=== PATIENT | female | born 1980 | race Caucasian/White ===

== ENCOUNTER 2017-08-10 07:03 | Emergency (ER) | payer BC ==
[2017-08-10 07:20] VITALS: BP 135/93
--- NOTE | 2017-08-10 07:38 | UC ---
Rupinder Ochoa Gabriel, scribed for Everette Nascimento MD on 08/10/17 at 0715 . Abdominal Pain Female HPI - HPI Summary HPI Summary: This patient is a 37 year old F presenting to [facility] with a chief complaint of intermittent ABD pain that began on 08-04-17. She did vomit that night but has not since. The patient rates the pain 7/10 in severity and states it is located in her RUQ. Symptoms alleviated by prilosec and ibuprofen. Patient reports back pain. Patient denies n/v/d, blood in stool, vaginal discharge, and fever. No hx of GERD. Pt does not take ibuprofen chronically. - History of Current Complaint Stated Complaint: ABDOMINAL PAIN Time Seen by Provider: 08/10/17 07:03 Hx Obtained From: Patient Hx Last Menstrual Period: 2 weeks ago Onset/Duration: Lasting Days, Still Present Timing: Intermittent Episodes Lasting: Severity Initially: Moderate Severity Currently: Moderate Pain Intensity: 7 Pain Scale Used: 0-10 Numeric Location: Discrete At: RUQ Radiates: Yes Radiates to: Back Character: Cramping Associated Signs and Symptoms: Positive: Negative - n/v, Other: - back pain Allergies/Adverse Reactions: Allergies Allergy/AdvReac Type Severity Reaction Status Date / Time Penicillins Allergy Hives Verified 08/10/17 07:10 Home Medications: Home Medications Ibuprofen TAB* [Advil TAB*] 200 mg PO Q6H PRN 08/10/17 [History Confirmed ] Omeprazole CAP* [Prilosec CAP* 20 MG] 20 mg PO DAILY PRN 08/10/17 [History Confirmed 08/10/17] PMH/Surg Hx/FS Hx/Imm Hx Previously Healthy: Yes - Surgical History Surgical History: Yes Surgery Procedure, Year, and Place: Wrist rebroken/reset age 1. tubes in ears when little - Family History Known Family History: Negative: Renal Disease, Respiratory Disease, Seizure Disorder - Social History Alcohol Use: None Substance Use Type: None Amount Used/How Often: socially Review of Systems Constitutional: Negative - fever Gastrointestinal: Abdominal Pain Musculoskeletal: Other: - back pain All Other Systems Reviewed And Are Negative: Yes Physical Exam - Summary Physical Exam Summary: General: well-appearing, mild pain distress Skin: warm, color reflects adequate perfusion, dry Head: normal Eyes: EOMI, KOREY ENT: normal Neck: supple, nontender Respiratory: CTA, breath sounds present Cardiovascular: RRR Abdomen: soft, TTP in RUQ Bowel: present Musculoskeletal: normal, strength/ROM intact Neurological: sensory/motor intact, A&O x3 Psychological: affect/mood appropriate Triage Information Reviewed: Yes Vital Signs: Initial Vital Signs Temp 99.4 F 08/10/17 07:12 Pulse 65 08/10/17 07:12 Resp 20 08/10/17 07:12 BP 135/93 08/10/17 07:12 Pulse Ox 98 08/10/17 07:12 Vital Signs Reviewed: Yes Abd Pain Female Course/Dx - Course Course Of Treatment: DISCUSSED NEED FOR IMAGING AND LAB WORK FOR TIMELY EVALUATION OF ABDOMINAL PAIN AND RECOMMENDED FURTHER EVALUATION AND TREATMENT IN THE EMERGENCY DEPARTMENT NOW. BP noted and advised to follow up with PCP. - Differential Dx/Diagnosis Provider Diagnoses: RIGHT UPPER QUADRANT ABDOMINAL PAIN. Elevated blood pressure without a previous diagnoses of hypertension Discharge - Sign-Out/Discharge Documenting (check all that apply): Discharge/Admit/Transfer - Discharge Plan Condition: Stable Disposition: HOME Patient Education Materials: Acute Abdominal Pain (ED) Referrals: Ruben Hanley MD [Primary Care Provider] - Additional Instructions: GO DIRECTLY TO THE EMERGENCY DEPARTMENT FOR FURTHER EVALUATION OF YOUR ABDOMINAL PAIN. - Billing Disposition and Condition Condition: STABLE Disposition: HOME The documentation as recorded by the Rupinder bravo Gabriel accurately reflects the service I personally performed and the decisions made by me, Everette Nascimento MD.
== END 2017-08-10 07:42 | disposition home or self-care (01) ==
LOC: UCEAST 07:03
DX: R10.11 Right upper quadrant pain (principal); R03.0 Elevated blood-pressure reading, without diagnosis of hypertension; Z88.0 Allergy status to penicillin
CPT/HCPCS: 99212; G0463

== ENCOUNTER 2017-08-10 07:58 | Inpatient (IN) | payer BC ==
[2017-08-10 09:18] LABS: ABS Basophils 0 10^3/ul (0-0.2); ABS Eosinophils 0.2 10^3/ul (0-0.6); ABS Lymphocytes 1.2 10^3/ul (1.0-4.8); ABS Monocytes 0.6 10^3/ul (0-0.8); ABS Neutrophils 5.1 10^3/ul (1.5-7.7); ABS Nucleated RBC 0 10^3/ul; Eosinophil % 2.5 % (0-6); Hematocrit 37 % (35-47); Hemoglobin 12.4 g/dl (12.0-16.0); Lymphocyte % 17.1 % (25-47); Mean Corpuscular HGB Conc 34 g/dl (31-36); Mean Corpuscular Hemoglobin 31 pg (27-31); Mean Corpuscular Volume 91 fL (80-97); Mean Platelet Volume 7.2 um3 (7.4-10.4); Nucleated Red Blood Cells % 0; Platelet Count 319 10^3/ul (150-450); Red Blood Count 4.03 10^6/ul (4.0-5.4); Red Cell Distribution Width 13 % (10.5-15); White Blood Count 7.2 10^3/ul (3.5-10.8)
--- NOTE | 2017-08-10 09:31 | ED ---
Abdominal Pain/Female - HPI Summary HPI Summary: From urgent care. Patient states for the past week she has been experiencing right upper quadrant pain with associated nausea and vomiting. Denies any right lower quadrant pain. Denies any fevers, sweats, chills. Symptoms are aggravated with eating and better with rest. She states she has been taking ibuprofen without relief. Denies any hematemesis. Denies any constipation or diarrhea. She's never had these symptoms before. Denies any urinary symptoms or vaginal discharge. LMP several weeks ago, however denies chance of . She states her worse symptoms were yesterday when she had a bagel with butter and a bag of trail mix. - History of Current Complaint Chief Complaint: EDAbdPain Stated Complaint: ABD PAIN Time Seen by Provider: 08/10/17 08:17 Hx Obtained From: Patient Hx Last Menstrual Period: 2 weeks ago ?: No Onset/Duration: Sudden Onset Timing: Constant Severity Initially: Moderate Severity Currently: Moderate Pain Intensity: 6 Pain Scale Used: 0-10 Numeric Location: Discrete At: RUQ Radiates: No Character: Dull, Cramping, Colicy Aggravating Factor(s): Food Alleviating Factor(s): Nothing Associated Signs and Symptoms: Positive: Nausea, Vomiting. Negative: Fever, Back Pain, Constipation, Blood in Stool, Urinary Symptoms, Decreased Appetite, Vaginal Bleeding, Vaginal Discharge, Diarrhea - Risk Factors Ectopic Risk Factor: Maternal Age ^ 30 Ovarian Torsion Risk Factor: Negative Allergies/Adverse Reactions: Allergies Allergy/AdvReac Type Severity Reaction Status Date / Time Penicillins Allergy Hives Verified 08/10/17 08:02 PMH/Surg Hx/FS Hx/Imm Hx Previously Healthy: Yes Endocrine/Hematology History: Denies: Hx Diabetes, Hx Thyroid Disease Cardiovascular History: Denies: Hx Hypertension, Hx Pacemaker/ICD Respiratory History: Denies: Hx Asthma, Hx Chronic Obstructive Pulmonary Disease (COPD) GI History: Denies: Hx Ulcer History: Denies: Hx Renal Disease Sensory History: Denies: Hx Hearing Aid Psychiatric History: Denies: Hx Panic Disorder - Cancer History Cancer Type, 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 tubes in ears when little - Immunization History Hx Pertussis Vaccination: No Immunizations Up to Date: Unable to Obtain/Confirm Infectious Disease History: No Infectious Disease History: Denies: Hx Hepatitis, Hx Human Immunodeficiency Virus (HIV), Traveled Outside the [place] in Last 30 Days - Family History Known Family History: Negative: Renal Disease, Respiratory Disease, Seizure Disorder - Social History Occupation: Employed Full-time Lives: With Family Alcohol Use: None Hx Substance Use: No Substance Use Type: Reports: None Hx Tobacco Use: Yes Smoking Status (MU): Light Every Day Tobacco Smoker Amount Used/How Often: socially Review of Systems Constitutional: Negative Negative: Fever, Chills, Fatigue ENT: Negative Cardiovascular: Negative Negative: Palpitations, Chest Pain Negative: Shortness Of Breath, Cough Positive: Abdominal Pain - RUQ, Vomiting, Nausea. Negative: Diarrhea Genitourinary: Negative Positive: no symptoms reported, see HPI Skin: Negative Neurological: Negative All Other Systems Reviewed And Are Negative: Yes Physical Exam Triage Information Reviewed: Yes Vital Signs On Initial Exam: Initial Vitals Temp Pulse Resp BP Pulse Ox 97.4 F 69 16 140/103 100 08/10/17 08:02 08/10/17 08:02 08/10/17 08:02 08/10/17 08:02 08/10/17 08:02 Vital Signs Reviewed: Yes Appearance: Positive: Well-Appearing, Well-Nourished Skin: Positive: Warm, Skin Color Reflects Adequate Perfusion Head/Face: Positive: Normal Head/Face Inspection Eyes: Positive: EOMI, KORYE, Conjunctiva Clear Neck: Positive: Supple, Nontender, No Lymphadenopathy Respiratory/Lung Sounds: Positive: Clear to Auscultation, Breath Sounds Present Cardiovascular: Positive: Normal, RRR, Pulses are Symmetrical in both Upper and Lower Extremities Abdomen Description: Positive: Soft - + bob's. Negative: CVA Tenderness (R) , CVA Tenderness (L), Hepatomegaly, McBurney's Point Tenderness, Peritoneal Signs, Pulsatile Mass, Splenomegaly Musculoskeletal: Positive: Normal, Strength/ROM Intact Neurological: Positive: Sensory/Motor Intact, Alert, Oriented to Person Place, Time, Speech Normal Psychiatric: Positive: Normal, Affect/Mood Appropriate AVPU Assessment: Alert Diagnostics - Vital Signs Vital Signs Temp Pulse Resp BP Pulse Ox 08/10/17 08:02 97.4 F 69 16 140/103 100 - Laboratory Lab Results: Lab Results 08/10/17 Range/Units 09:09 WBC 7.2 (3.5-10.8) 10^3/ul RBC 4.03 (4.0-5.4) 10^6/ul Hgb 12.4 (12.0-16.0) g/dl Hct 37 (35-47) % MCV 91 (80-97) fL MCH 31 (27-31) pg MCHC 34 (31-36) g/dl RDW 13 (10.5-15) % Plt Count 319 (150-450) 10^3/ul MPV 7.2 L (7.4-10.4) um3 Neut % (Auto) 71.5 (38-83) % Lymph % (Auto) 17.1 L (25-47) % Cameron % (Auto) 8.4 H (0-7) % Eos % (Auto) 2.5 (0-6) % Baso % (Auto) 0.5 (0-2) % Absolute Neuts (auto) 5.1 (1.5-7.7) 10^3/ul Absolute Lymphs (auto) 1.2 (1.0-4.8) 10^3/ul Absolute Monos (auto) 0.6 (0-0.8) 10^3/ul Absolute Eos (auto) 0.2 (0-0.6) 10^3/ul Absolute Basos (auto) 0 (0-0.2) 10^3/ul Absolute Nucleated RBC 0 10^3/ul Nucleated RBC % 0 Result Diagrams: 08/10/17 09:09 08/10/17 09:09 Lab Statement: Any lab studies that have been ordered have been reviewed, and results considered in the medical decision making process. Re-Evaluation - Re-Evaluation First Eval Change: Improved - improved s/p morphine and reglan Abdominal Pain Fem Course/Dx - Course Course Of Treatment: During the course of treatment, the patient is given 4 mg morphine, 10 mg Reglan with good relief of symptoms. On physical examination, positive Bob sign is noted. No tenderness over McBurney's point, negative Rovsing. No pain in other quadrants of the abdomen. UA obtained which is negative for leuks positive for bilirubin. US gallbladder ordered, however d/t holiday, no US is available. CT obtained which shows: IMPRESSION: CHOLELITHIASIS WITH GALLBLADDER WALL THICKENING AND PERICHOLECYSTIC INFLAMMATORY CHANGE,. MOST CONSISTENT WITH CHOLECYSTITIS IN THE CORRECT CLINICAL SETTING. Labs ordered. WBC WNL at 7.2. LFT's and bilirubin elevated. Hepatitis panel obtained which is non-reactive. Discussed case with Dr. Lauren at 12:35p who agrees to consult on the patient and recommends abx and admission. Dr. Joseph agrees to accept patient for admission. - Diagnoses Differential Diagnosis: Positive: Renal Colic, Other - Cholecystitis, choledocholithiasis Provider Diagnoses: Cholecystitis Is Visit Related: No - Provider Notifications Discussed Care Of Patient With: Sparkle Joseph - admission to hospitalist service with surgery consult Instructed by Provider To: Admit As Inpatient Discharge - Sign-Out/Discharge Documenting (check all that apply): Discharge/Admit/Transfer - Discharge Plan Condition: Good Disposition: ADMITTED TO [facility] Referrals: Ruben Hanley MD [Primary Care Provider] - - Billing Disposition and Condition Condition: GOOD Disposition: [facility]
[2017-08-10] MEDS ORDERED: Morphine VIAL* 4 MG/ML VIAL (1 ml vial) IV ONE (09:33)
[2017-08-10] MEDS ORDERED: Metoclopramide IV* 5 MG/ML 2 ML VIAL IV ONE (09:34)
[2017-08-10 09:35] LABS: EGFR Non-African American 88.8 (>60)
[2017-08-10 10:01] LABS: Urine Appearance Cloudy; Urine Blood Negative (Negative); Urine Color Amber; Urine Ketones Negative (Negative); Urine Protein 1+(30 mg/dL) (Negative); Urine Specific Gravity 1.023 (1.010-1.030); Urine Urobilinogen Positive (Negative)
--- NOTE | 2017-08-10 12:16 | RAD ---
CLINICAL HISTORY: Evaluate gallbladder for cholecystitis COMPARISON: None TECHNIQUE: Multiple contiguous axial CT scans were obtained of the abdomen and pelvis, without intravenous contrast enhancement. Coronal and sagittal multiplanar reformations are submitted for review. Oral contrast was not administered. FINDINGS: The study is limited by the lack of intravenous contrast. This limits evaluation of the solid organs and vasculature. LUNG BASES: The lung bases are clear. LIVER: The liver is normal in shape, size, contour, and attenuation. BILE DUCTS: There is no intrahepatic or extrahepatic biliary dilatation. GALLBLADDER: Multiple gallstones are noted. There is gallbladder wall thickening with stranding of the pericholecystic fat. PANCREAS: The pancreas is normal, without mass or ductal dilatation. SPLEEN: Normal in size and appearance. UPPER GI TRACT: Evaluation of the gastrointestinal tract is limited by incomplete gastric distention. The upper GI tract is unremarkable. SMALL BOWEL AND MESENTERY: The small bowel is normal in contour, course, and caliber. There is no obstruction or dilatation. COLON: The colon is normal in contour, course, caliber. There is no pericolonic inflammatory change. ADRENALS: Normal bilaterally. KIDNEYS: The kidneys are normal in shape, size, contour, and axis. There is no hydronephrosis or nephrolithiasis. BLADDER: The bladder is smooth in contour. PELVIC ORGANS: Normal AORTA: The aorta is normal. IVC: Unremarkable LYMPH NODES: There is no lymphadenopathy by size criteria. ABDOMINAL WALL: There is no evidence for abdominal wall hernia. BONES AND SOFT TISSUES: Unremarkable OTHER: None IMPRESSION: CHOLELITHIASIS WITH GALLBLADDER WALL THICKENING AND PERICHOLECYSTIC INFLAMMATORY CHANGE, MOST CONSISTENT WITH CHOLECYSTITIS IN THE CORRECT CLINICAL SETTING.
[2017-08-10] MEDS: Famotidine IV* 10 MG/ML 2 ML (20 mg) IV SLOW PU SCH ×2 (14:29→21:05)
[2017-08-10] MEDS: Morphine VIAL* 4 MG/ML VIAL (1 ml vial) IV PRN (18:00)
[2017-08-10] MEDS: Metoclopramide IV* 5 MG/ML 2 ML VIAL IV PRN (18:01)
--- NOTE | 2017-08-10 21:38 | HP ---
CC: Dr. Hanley * ADMISSION HISTORY AND PHYSICAL: DATE OF ADMISSION: 08/10/17 ATTENDING PHYSICIAN: Sparkle Joseph MD * (DICTATED BY MARANDA KING NP) PRIMARY CARE PROVIDER: [facility], Dr. Hanley. CHIEF COMPLAINT: Right upper quadrant pain and vomiting. HISTORY OF PRESENT ILLNESS: This is a very pleasant 37-year-old female patient who went to urgent care this morning for a week of right upper quadrant pain with associated nausea and vomiting. The patient states she is getting chills when the pain and the cramping starts; however, she has not had any subjective fevers or night sweats. She is also experiencing some postprandial pain, but no further complaints of chest pain. No shortness of breath. No urinary complaints. No arthralgias or myalgias and no further constitutional complaints. PAST MEDICAL HISTORY: No past medical history. PAST SURGICAL HISTORY: None. ALLERGIES: PENICILLIN for which she has hives. SOCIAL HISTORY: The patient is an active everyday smoker, half a pack a day for more than 20 years. The patient denies any alcohol use and denies any illicit drug use. REVIEW OF SYSTEMS: A 10-point review of systems is negative except as noted in HPI. PHYSICAL EXAMINATION GENERAL: The patient is alert, well appearing female appears to be her stated age. VITAL SIGNS: Currently, blood pressure 117/71, heart rate 66, respiratory rate 16, temperature is 97.4. She is satting at 95% to 97% on room air. HEENT: The patient is atraumatic, normocephalic. PERRLA with nonicteric sclerae. Extraocular movements are intact. NECK: Supple, nontender. No thyromegaly appreciated. No JVD noted. LUNGS: Clear bilaterally to auscultation with no wheezing, rhonchi, or rales. CARDIOVASCULAR: S1, S2 present. No murmurs, gallops, or rubs. ABDOMEN: Soft, tender on right upper quadrant. No rebound or guarding noted. She has positive bowel sounds in all 4 quadrants. No organomegaly appreciated. : Deferred. MUSCULOSKELETAL: There is no clubbing. No cyanosis. No edema. She has +2 distal pulses palpable. She has steady gait. NEUROLOGIC: She is grossly intact with no focal deficits. PSYCHIATRIC: She is cooperative and appropriate. LABORATORY DATA: WBC is 7.2, RBC is 4.3, hemoglobin 12.4, hematocrit 37, platelets 319, MPV 7.9, lymphocytes 17.1, monos are 8.4. Sodium 138, potassium 3.8, chloride 103, CO2 of 28, BUN 8, creatinine 0.73, GFR 88.8, glucose 107, lactic acid 0.8, calcium 8.9, magnesium 2.0, bilirubin 3.20, direct bilirubin 1.60, GGT 359, AST 280, ALT 244, alkaline phosphatase 159, CRP 48.72, total protein 7.1, albumin 3.7, globulin 3.4, amylase 19, lipase 14, beta quant is 0.71. Urinalysis: 1+ protein, 2+ urine bilirubin, and positive for urobilinogen, 1+ rbc's and squamous epithelial cells are present. She is negative for bacteria and negative for nitrites. Hepatitis screening is all nonreactive. IMAGING: The patient had CAT scan of the abdomen and pelvis. Findings: Cholelithiasis with gallbladder wall thickening and pericholecystic inflammatory change most consistent with cholecystitis in the correct clinical setting. IMPRESSION: This is a 37-year-old female patient with no significant medical history who presents with a 1 week report of nausea, vomiting, and right upper quadrant abdominal pain likely cholecystitis. PLAN: The patient has been admitted to medical service. Dr. Lauren from Surgery has already been consulted. DIAGNOSIS: Nausea, vomiting and abdominal pain, likely cholecystitis. Dr. Lauren is requesting MRCP. The patient will have that imaging and then likely plan for OR in the morning. She will be n.p.o. From this point forward. We have started lactated Ringers at 125 mL per hour, morphine for pain, Reglan for nausea and vomiting. She is low risk for deep venous thrombosis. She can have below the knee SHAVON stockings prior to her procedure. She is otherwise ambulatory. Again, plan for MRCP, OR in the morning, n.p.o. She is medically optimized for this procedure. She has no previous cardiac history. No family history of cardiac disease. No existing chronic obstructive pulmonary disease. No compromise renal renal function. Denies any exertional dyspnea or any other symptoms. She has as such an RCRI low risk with a score of leaving her at 0.4 risk for major cardiac event. Surgical risks still apply and are outside the scope of this medical evaluation and that will be handled by the surgical team. The rest of the patient's course will be determined by further diagnostics, laboratories and any other input from other providers as warranted during this admission. I did also of note have discussion with a healthcare proxy or decision maker. The patient noted that her sister at the bedside would be her healthcare proxy. Her name and phone number is on the chart. MARANDA KING, AUTOMOTIVE ENGINEERING TEACHER [id number]/[facility] #: [id number] [place]
--- NOTE | 2017-08-10 22:20 | CONS ---
GASTROENTEROLOGY CONSULTATION DATE OF CONSULT: 08/10/17 CONSULTING PHYSICIANS: Jimenez Hanley MD, Kade Wolff MD REASON FOR CONSULTATION: Abdominal pain and abnormal liver functions. 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 It was quite severe after dinner on 08/04/17. It would come and go as severe cramps with a background ache in right upper quadrant. It was a little better on 08/07/17 and 08/08/17 and she had some appetite and ate some solid food, though there was still a little bit of a background ache. Then last night , she had severe pain again. There has been no fever or urinary changes. She has had some vomiting. She has never had anything like this before. She does not take antacids and denies a history of acid indigestion or heartburn. Her usual bowel pattern is about every third day and she is not troubled by that and does not take any laxatives or fiber supplements. There is no family history of gallbladder disease. She has not seen her primary doctor in about 3 years. PAST MEDICAL HISTORY: 1. Obesity. 2. Wrist surgery - her only surgical procedure. 3. 2, para 2, both vaginal births, ages 13 and 3. SOCIAL HISTORY: She is and has boys, ages 5 and 15. 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 REVIEW OF SYSTEMS: No history of palpitations, SC, syncope, valvular disease, TB, hemoptysis, hepatitis, jaundice, hematuria or bowel investigations. PHYSICAL EXAM: She is a morbidly obese woman in no overt distress, a little sleepy at this time. She is afebrile. HEENT exam is remarkable for slightly muddy sclerae. She has no adenopathy. Her lungs are clear. Heart sounds are normal. Breasts and pelvic exams deferred. The abdomen is obese with a tattoo on the right lower flank. Bowel sounds are present. The abdomen is soft and there is really no focal tenderness. Rectal: Deferred. Extremities show no edema. LABORATORY DATA: CBC normal with hemoglobin 12.4, hematocrit 37, MCV 91, platelets 319,000, white count 7.2 and LFTs abnormal with bilirubin 4, ALT 300, alkaline phosphatase 160. IMAGING: CT scan - cholelithiasis with mildly thickened gallbladder wall and no abnormality of the upper GI tract. IMPRESSION: This woman with risk factors for gallstone disease, obesity, and 2 children, has a history quite consistent with biliary colic and LFT abnormalities that confirmed that impression. Gallstones were seen on CT scan. We need to follow her labs and clinical course along with an MRCP to see whether a stone successfully transits the papilla or stays retained within the common duct, in which case an ERCP will be suggested. A detailed description of ERCP was done with the assistance of a diagram. [id number]/[facility] #: [id number] [facility] CENTERRaoul
[2017-08-11] MEDS: Metoclopramide IV* 5 MG/ML 2 ML VIAL IV PRN (00:11)
[2017-08-11] MEDS: Morphine VIAL* 4 MG/ML VIAL (1 ml vial) IV PRN ×3 (00:13→19:56)
[2017-08-11 07:05] LABS: ABS Basophils 0 10^3/ul (0-0.2); ABS Eosinophils 0.3 10^3/ul (0-0.6); ABS Lymphocytes 1.8 10^3/ul (1.0-4.8); ABS Monocytes 0.5 10^3/ul (0-0.8); ABS Neutrophils 3.6 10^3/ul (1.5-7.7); ABS Nucleated RBC 0 10^3/ul; Eosinophil % 4.6 % (0-6); Hematocrit 33 % (35-47); Hemoglobin 11.3 g/dl (12.0-16.0); Lymphocyte % 28.7 % (25-47); Mean Corpuscular HGB Conc 34 g/dl (31-36); Mean Corpuscular Hemoglobin 31 pg (27-31); Mean Corpuscular Volume 90 fL (80-97); Mean Platelet Volume 7.5 um3 (7.4-10.4); Nucleated Red Blood Cells % 0; Platelet Count 275 10^3/ul (150-450); Red Blood Count 3.67 10^6/ul (4.0-5.4); Red Cell Distribution Width 13 % (10.5-15); White Blood Count 6.2 10^3/ul (3.5-10.8)
[2017-08-11 07:28] LABS: EGFR Non-African American 96.3 (>60)
[2017-08-11] MEDS: Famotidine IV* 10 MG/ML 2 ML (20 mg) IV SLOW PU SCH ×2 (08:18→19:59)
--- NOTE | 2017-08-11 08:46 | RAD ---
Indication: Right upper quadrant pain. Real-time sonography of the right upper quadrant was performed. The liver is normal in size measuring 17.1 cm in length. There are no focal lesions or intrahepatic ductal dilatation noted. The gallbladder demonstrates multiple echogenic foci with posterior acoustic shadowing consistent with cholelithiasis. There is wall thickening measuring up to 6 mm. Sludge is noted within the gallbladder. The common duct measures up to 5 mm. Right kidney measures 12.6 x 4.3 x 5.4 cm no hydronephrosis. The pancreas demonstrates no mass or pancreatic duct dilatation. Aorta and inferior vena cava are unremarkable. IMPRESSION: Cholelithiasis with sludge in gallbladder. No biliary duct dilatation is noted.
[2017-08-11] MEDS ORDERED: Nicotine Inhaler* 10 MG AMP ONE (09:36)
[2017-08-11] MEDS ORDERED: Mouth Piece, Nicotine* 1 EACH CARTRIDGE ONE (09:36)
[2017-08-11] MEDS ORDERED: Nicotine Inhaler* 10 MG AMP INH PRN (09:57)
[2017-08-11] MEDS ORDERED: Mouth Piece, Nicotine* 1 EACH CARTRIDGE INH PRN (09:57)
--- NOTE | 2017-08-11 11:49 | CONS ---
CC: Dr. Jimenez Hanley; Dr. Salvador Marie; [facility] SURGICAL CONSULTATION REPORT: DATE OF CONSULT: HISTORY OF PRESENT ILLNESS: I was contacted by the emergency room yesterday regarding Ms. Villa, a 37-year-old female, who presented with right upper quadrant pain and vomiting. Pain started Thursday of last week, was accompanied with nausea that resolved. Patient started taking Prilosec over-the-co unter as well as ibuprofen and had some improvement until worsening pain was noted yesterday. She pr esented to [facility] and was transferred to the ER. Patient denies any similar symptoms. The pain is mostly in the right upper abdomen, nonradiating. Pain was described more as crampy. She berhane ed fevers or sweats but did note chills. No loss of appetite. The workup has included a CT scan, which showed inflammatory process of the gallbladder along with ga llstones. Patient was noted to have elevated bilirubin and transaminases. She was seen by [facility] erology and admitted to the hospitalist service. PAST MEDICAL HISTORY: None. PAST SURGICAL HISTORY: Wrist surgery. MEDICATIONS: None. 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 She smokes on occasion. Denies drug use. REVIEW OF SYSTEMS: No fevers or chills. No cardiovascular or cerebrovascular disease. Nausea as de scribed. Abdominal pain as described. No dysuria. No dark colored urine or light colored stools. Last bowel movement was yesterday, was within normal limits. No complication with anesthesia. No bl eeding or clotting disorders. PHYSICAL EXAM: She is 5 feet 9 inches, 185 pounds with body mass index of 27. She is afebrile. Blo od pressure 126/73, heart rate 61. She is alert and oriented x3, in no apparent distress. Head, Ear s, Eyes, Nose, and Throat: Normocephalic, atraumatic. Sclerae are icteric. Mucous membranes are dr y. Abdomen is soft, nondistended, minimal tenderness on deep palpation. Negative Bob sign. No h ernias or masses noted. No surgical scars. Negative CVA tenderness. Rectal exam not performed. Ex tremities: Within normal limits. DIAGNOSTIC STUDIES/LAB DATA: Labs show normal white blood cell count. Chemistry panel remarkable fo r elevated bilirubin of 3.2, which has gone up to 4.9 today. The rest of the labs are reviewed and sh ow an elevated alk phos of 208 and elevated transaminases. CRP is 49. Urinalysis shows negative nit rites, positive bilirubin. Hepatitis panel nonreactive for both A, B, and C. Report of the CAT scan reviewed and described above. Ultrasound, which is performed this morning, wa s reviewed as well. This report states cholelithiasis with sludge in the gallbladder with wall thick ening up to 6 mm. No comment on any pericholecystic fluid. No biliary ductal dilatation with common bile duct at 5 mm. IMPRESSION: Likely choledocholithiasis with differential diagnosis of acute cholecystitis. RECOMMENDATIONS: Recommendation is for an MRCP and possible ERCP. Repeat labs in the morning. The patient will likely need laparoscopic cholecystectomy and I discussed this with her today; however, w e would need to workup the elevated LFTs and the possibility of common bile duct obstruction. Patien t can undergo the MRCP. If this is positive, she can go for ERCP. If this is a normal MRI, we could look towards repeating the labs in the morning. If they continue to elevate despite negative MRI, we can perform a laparoscopic cholecystectomy with intraoperative cholangiogram. We will follow along closely. Please feel free to contact me with any questions. [id number]/[facility] #: [id number]
--- NOTE | 2017-08-11 15:42 | RAD ---
HISTORY: Cholecystitis COMPARISONS: CT dated August 10, 2017, ultrasound dated August 11, 2017 TECHNIQUE: Axial T2-weighted images of the abdomen with fat saturation, coronal T2-weighted images of the abdomen, coronal thick slab MRCP T2-weighted images of the abdomen with maximum intensity projection rotating reconstructions. The study is limited by patient motion artifact. FINDINGS: Hepatobiliary: Again noted is gallbladder wall thickening with filling defects consistent with gallstones. The gallbladder wall measures up to 0.6 cm in caliber. There is mild increased signal of the pericholecystic fat consistent with inflammatory changes noted on CT. There is no intrahepatic or extrahepatic biliary dilatation.. The kidneys, spleen, pancreas and visualized bones and soft tissues are unremarkable. IMPRESSION: CHOLELITHIASIS WITH GALLBLADDER WALL THICKENING AND MILD PERICHOLECYSTIC INFLAMMATORY CHANGE, SUGGESTIVE OF ACUTE CHOLECYSTITIS IN THE CORRECT CLINICAL SETTING.
--- NOTE | 2017-08-11 16:26 | PN ---
Subjective Date of Service: 08/11/17 Interval History: Patient is pain free when examined. Patient denies F/C, N/V, abdominal pain, diarrhea, CP, SOB, constipation, dizziness, palpitations, or other pain. Patient impatient for treatment due to delay in MRCP. Patient amenable to definitive treatment with cholecystectomy. Family History: Unchanged from Admission Social History: Unchanged from Admission Past Medical History: Unchanged from Admission Objective Active Medications: Device (Nicotine Mouth Piece*) 1 each INH .USE WITH NICOTROL PRN PRN Reason: CRAVING Famotidine (Pepcid Iv*) 20 mg IV SLOW PU BID [facility] Last Admin: 08/11/17 08:18 Dose: 20 mg Lactated Ringer's (Lactated Ringers 1000 Ml Bag*) 1,000 mls @ 125 mls/hr IV PER RATE [facility] Last Admin: 08/11/17 06:02 Dose: 125 mls/hr Metoclopramide HCl (Reglan Iv*) 5 mg IV Q6H PRN PRN Reason: NAUSEA/VOMITING Last Admin: 08/11/17 00:11 Dose: 5 mg Morphine Sulfate (Morphine Vial*) 2 mg IV Q4H PRN PRN Reason: PAIN - MILD Last Admin: 08/11/17 15:40 Dose: 2 mg Nicotine (Nicotine Inhaler*) 10 mg INH Q2H PRN PRN Reason: CRAVING Vital Signs - 8 hr 08/11/17 08/11/17 08/11/17 08:24 11:13 11:20 Temperature 98.0 F Pulse Rate 52 63 Respiratory 16 20 Rate Blood Pressure 137/91 (mmHg) O2 Sat by Pulse 98 99 Oximetry 08/11/17 15:40 Temperature Pulse Rate Respiratory 16 Rate Blood Pressure (mmHg) O2 Sat by Pulse Oximetry Oxygen Devices in Use Now: None Appearance: Patient is a 37yo female who appears stated age and is sitting in the bed in [facility]. Eyes: No Scleral Icterus, PERRLA Ears/Nose/Mouth/Throat: NL Teeth, Lips, Gums, Clear Oropharnyx, Mucous Membranes Moist Neck: NL Appearance and Movements; NL JVP, Trachea Midline Respiratory: Symmetrical Chest Expansion and Respiratory Effort, Clear to Auscultation Cardiovascular: NL Sounds; No Murmurs; No JVD, RRR, No Edema Abdominal: NL Sounds; No Tenderness; No Distention, No Hepatosplenomegaly, - - Negative Bob's sign. Lymphatic: No Cervical Adenopathy Extremities: No Edema, No Clubbing, Cyanosis Skin: No Rash or Ulcers, No Nodules or Sclerosis Neurological: Alert and Oriented x 3, NL Sensation, NL Gait, NL Muscle Strength and Tone Result Diagrams: 08/11/17 06:41 08/11/17 06:41 Additional Lab and Data: Lab Results Assess/Plan/Problems-Billing Assessment: Patient is a 37yo female with no pertinent PMH with RUQ pain and probable choledocholithiasis with possibly passed stone. Patient is pending possible cholecystectomy. - Patient Problems (1) Choledocholithiasis Current Visit: Yes Status: Acute Code(s): K80.50 - CALCULUS OF BILE DUCT W/ O CHOLANGITIS OR CHOLECYST W/O OBST SNOMED Code(s): 704321064 Comment: Recurrent pain this afternoon. Controlled with Morphine. MRCP negative for stone. LFTs elevated and Bilirubin increased again today. Appreciate GI and General Surgical consult. Patient will not need ERCP today. Will recheck labwork in AM and hopeful Cholecystectomy tomorrow. (2) Transaminitis Current Visit: Yes Status: Acute Code(s): R74.0 - NONSPEC ELEV OF LEVELS OF TRANSAMNS & LACTIC ACID DEHYDRGNSE SNOMED Code(s): 620829763 Comment: Likely due to choledocholithiasis with CBD stone that has passed. Acute hepatitis panel negative. Monitor in AM. (3) DVT prophylaxis Current Visit: Yes Status: Acute Code(s): WJA5092 - SNOMED Code(s): 130328139 Comment: Low risk, andbulation and SHAVON Stockings. (4) Full code status Current Visit: Yes Status: Acute Code(s): Z78.9 - OTHER SPECIFIED HEALTH STATUS SNOMED Code(s): 696865687 Status and Disposition: Inpatient.
[2017-08-12] MEDS: Morphine VIAL* 4 MG/ML VIAL (1 ml vial) IV PRN ×2 (01:55→08:01)
[2017-08-12] MEDS: Famotidine IV* 10 MG/ML 2 ML (20 mg) IV SLOW PU SCH (08:01)
--- NOTE | 2017-08-12 08:07 | PN ---
Progress Note - Progress Note Date of Service: 08/12/17 SOAP: Subjective: Prt seen and examined. continued pain Objective: af vss abdo: soft/ mild distension/ tender with swelling at RUQ; neg murphys MRCP reviewed Assessment: acute cholecystitis, continued elevated TB and ALP. passed CBD stone vs laneyizzi 's Plan: abx labs in am possible d/c home today wioth abx and follow up in my office. Pt wants to go home for family issues.
[2017-08-12] MEDS ORDERED: Ciprofloxacin 400MG IVPREMIX(* 400 MG/200 ML BAG IVPB SCH (09:00)
[2017-08-12] MEDS ORDERED: metroNIDAZOLE IV 500 MG/100ML* 500 MG/100 ML BAG IVPB SCH (10:00)
[2017-08-12 10:44] LABS: ABS Basophils 0 10^3/ul (0-0.2); ABS Eosinophils 0.3 10^3/ul (0-0.6); ABS Lymphocytes 1.5 10^3/ul (1.0-4.8); ABS Monocytes 0.4 10^3/ul (0-0.8); ABS Neutrophils 3.2 10^3/ul (1.5-7.7); ABS Nucleated RBC 0 10^3/ul; Eosinophil % 4.9 % (0-6); Hematocrit 34 % (35-47); Hemoglobin 11.6 g/dl (12.0-16.0); Lymphocyte % 28.3 % (25-47); Mean Corpuscular HGB Conc 34 g/dl (31-36); Mean Corpuscular Hemoglobin 31 pg (27-31); Mean Corpuscular Volume 91 fL (80-97); Mean Platelet Volume 7.6 um3 (7.4-10.4); Nucleated Red Blood Cells % 0; Platelet Count 304 10^3/ul (150-450); Red Blood Count 3.78 10^6/ul (4.0-5.4); Red Cell Distribution Width 13 % (10.5-15); White Blood Count 5.5 10^3/ul (3.5-10.8)
[2017-08-12 12:42] VITALS: BP 133/79
[2017-08-12] MEDS ORDERED: oxyCODONE TAB* 5 MG TAB PO ONE (12:43)
--- NOTE | 2017-08-13 17:55 | DS ---
CC: Dr. Hanley * DISCHARGE SUMMARY: DATE OF ADMISSION: 08/10/17 DATE OF DISCHARGE: 08/12/17 PRIMARY CARE PROVIDER: Dr. Hanley, [facility]. MY ATTENDING WHILE IN THE HOSPITAL: Dr. Manuela Hou.* (DICTATED BY [facility]) PRIMARY DISCHARGE DIAGNOSES: 1. Acute cholecystitis, possible choledocholithiasis. 2. Transaminitis. SECONDARY DISCHARGE DIAGNOSIS: None. STUDIES DONE WHILE IN THE HOSPITAL: Abdomen and pelvis CT from 08/10/17 read as cholelithiasis with gallbladder wall thickening and pericholecystic inflammatory change most consistent with a cholecystitis in correct clinical setting. Gallbladder ultrasound on 08/11/17 read as cholelithiasis with sludge in gallbladder. No biliary duct dilatations noted. Cholangiopancreatography MRI from 08/11/17 read as cholelithiasis with gallbladder wall thickening and mild pericholecystic inflammatory change suggestive of acute cholecystitis in the correct clinical setting. MEDICATIONS AT DISCHARGE: 1. Ibuprofen 200 mg p.o. q.6 hours as needed. 2. Omeprazole 20 mg p.o. daily as needed. 3. Ciprofloxacin 500 mg p.o. b.i.d. x20. 4. Metronidazole 500 mg p.o. q.8 hours x30. 5. Zofran ODT 4 mg p.o. q.6 hours as needed x20. 6. Oxycodone 5 mg p.o. q.6 hours as needed x20. New medications at discharge: 1. Ciprofloxacin. 2. Metronidazole. 3. Zofran. 4. Oxycodone. HOSPITAL COURSE: This is a brief summary of the patient's presentation. For more details, please see the history and physical from Nahed Quintero on 08/10/17. In brief, the patient is a 37-year-old female who went to the urgent care for right upper quadrant pain associated with nausea and vomiting that had been going on for approximately 1 week. She also had postprandial pain. No fevers or chills. No shortness of breath. No other complaints. Patient had a CT of the abdomen, which showed cholelithiasis and gallbladder wall thickening with pericholecystic inflammatory change. Dr. Jalen Lauren, General Surgery, was consulted as was Dr. Salvador Marie of Gastroenterology. Patient was found to have CRP of 48.72, direct total bilirubin 3.2, GGT is 359, AST 280, ALT 244, alkaline phosphatase 159, low amylase, normal lipase. Negative UA, positive only for protein and bilirubin. Negative acute hepatitis serology. Patient had an MRCP and a gallbladder ultrasound as above on 08/11/17. Patient had intermittent continued right upper quadrant pain while in the hospital. Patient was considered for an ERCP, but it was briefly unnecessary with the results of the MRCP showing no active stone. Patient due to social reasons was very anxious to get home and she had difficulty finding child care center administrator for her children. General Surgery recommended surgery at the earliest on 08/13/17 prompting the patient to elected this for outpatient management. Patient was stable and will be discharged home on 08/12/17. PHYSICAL EXAM ON THE DAY OF DISCHARGE: General: Patient is a 37-year-old female who appears stated, sitting comfortably in the bed, in no acute distress. Vital Signs: At the time of discharge, temperature 98.3, pulse rate 65, respiratory rate 16, oxygen saturation 98% on room air, blood pressure 133/ 79. HEENT: Head: Normocephalic, atraumatic. Sclerae anicteric. No conjunctival injection. Nasal mucosa is moist. Oral mucosa moist. No pharyngeal erythema, discharge, or exudate. Neck: Supple, nontender, no lymphadenopathy, no carotid bruit auscultated. No JVD. Cardiac: Regular rate and rhythm. No clicks, murmurs, gallops or rubs. Pulses 2+ in the bilateral dorsalis pedis, posterior tibialis and radial areas. No calf tenderness or lower extremity edema noted. Respiratory: Clear to auscultation bilaterally. No wheezes, rales or rhonchi. Good air exchange bilaterally. Abdomen: Soft, slight tenderness to palpation over the right upper quadrant. Negative Bob' s sign. Nondistended. Bowel sounds present and normoactive in all 4 quadrants. No hepatosplenomegaly. No abdominal bruits auscultated. No mass. Genitourinary: No suprapubic or CVA tenderness. Skin: Clean, dry, and intact. No rash. Neuro: Cranial nerves II through XII grossly intact. No focal deficits. Alert and oriented x3. Psychiatric: Pleasant and cooperative. LABORATORY DATA ON THE DAY OF DISCHARGE: White blood cell count 5.5, hemoglobin 11.6, platelet count 304. Total bilirubin 4.2, direct bilirubin 2.7 , indirect bilirubin 1.5, AST 146, ALT 265, alkaline phosphatase 243. CRP is 31.23. Total protein 6.2, albumin 3.3, globulin 3.9. DISCHARGE PLAN: The patient will be discharged to home with close follow up with Dr. Lauren. This appointment will be scheduled for 08/17/17. Patient will have LFTs drawn on the next 3 days to maintain that they trend down as well as LFTs on 08/17/17 before her appointment with Dr. Lauren. These lab tests have been requested by Dr. Marie and Dr. Lauren respectively and that will be sent to their offices that will be consideration for cholecystectomy on 08/17/17 based on patient's laboratory data. Patient will have medications as above for pain control, DVT prophylaxis and prophylaxis of infection. Patient has no signs of ascending cholangitis, ruptured gallbladder or other infection at this time. However, patient will be continued on antibiotics for prophylaxis of infection, which is possible. Patient should have a clear liquid diet. Patient should return to the hospital for alarming symptoms such as severely increased abdominal pain, inability to tolerate oral intake or chest pain/shortness of breath. Patient should engage in activity as tolerated. TIME SPENT: Approximately 60 minutes were spent on this discharge, 30 of which were spent [id number] with the patient obtaining history and physical and discussing treatment plan. AL PITTS [id number]/[facility] #: [id number] CORINNE
== END 2017-08-12 13:10 | disposition home or self-care (01) ==
LOC: ED 07:58 → SSU 13:02
PROVIDERS: ADMIT Internal Medicine; ATTEND Student in an Organized Health Care Education/Training Program
DX: K80.42 Calculus of bile duct with acute cholecystitis without obstruction (principal); R74.0 Nonspecific elevation of levels of transaminase and lactic acid dehydrogenase [LDH]; E66.01 Morbid (severe) obesity due to excess calories; F17.210 Nicotine dependence, cigarettes, uncomplicated; Z88.0 Allergy status to penicillin; Z68.27 Body mass index [BMI] 27.0-27.9, adult
CPT/HCPCS: 36415; 74176; 74181; 76376; 76705; 80053; 80074; 80076; 81003; 81015; 82150; 82248; 82977; 83605; 83690; 83735; 84702; 85025; 86140; 87086; 99212; 99284; A9270-GY; G0463; J0744; J2270; J2765; J3490

== ENCOUNTER 2017-08-19 12:49 | Observation (INO) | payer BC ==
[~2017-08-19 12:49] MED LIST: Buffered Lidocaine 0.9% SYRIN* 5 ML/SYR SYRINGE INTRADERM ONE
[2017-08-19] MEDS ORDERED: Ciprofloxacin 400MG IVPREMIX(* 400 MG/200 ML BAG ONE (13:51)
[2017-08-19] MEDS ORDERED: fentaNYL* 50 MCG/ML 2 ML VIAL (100 MCG VIAL) ONE (14:02)
[2017-08-19] MEDS ORDERED: Midazolam* 1 MG/ML 2 ML VIAL (2 MG) ONE (14:02)
[2017-08-19] MEDS ORDERED: Levalbuterol 0.63MG/3ML NEB* UNIT OF USE INH PRN (14:54)
[2017-08-19] MEDS ORDERED: fentaNYL* 50 MCG/ML 2 ML VIAL (100 MCG VIAL) IV PRN (14:54)
[2017-08-19] MEDS ORDERED: Acetaminophen TAB* 325 MG PO PRN (14:54)
[2017-08-19] MEDS ORDERED: PROCHLORPERAZINE INJ 5 MG/ML 2 ML VIAL IV PRN (14:54)
[2017-08-19] MEDS ORDERED: Ondansetron ODT TAB* 4 MG PO PRN (14:54)
[2017-08-19] MEDS ORDERED: Nalbuphine* 20 MG/ML 1 ML VIAL IV PRN (14:54)
[2017-08-19] MEDS ORDERED: DiMENhydriNATE IV* 50 MG/ML VIAL IV PUSH PRN (14:54)
[2017-08-19] MEDS ORDERED: Naloxone* 0.4 MG/ML 1 ML VIAL IV PRN (14:54)
--- NOTE | 2017-08-19 15:17 | RAD ---
HISTORY: Jaundice, elevated bilirubin COMPARISONS: August 11, 2014 TECHNIQUE: Multiple transverse and longitudinal ultrasound images were obtained of the right upper quadrant of the abdomen using grayscale and color Doppler imaging. FINDINGS: LIVER: The liver is normal in shape, size, contour, and echogenicity. There are no focal parenchymal masses. There is normal hepatopedal flow of the portal vein on Doppler imaging. BILIARY TREE: There is dilatation of the common duct. There is no intrahepatic biliary dilatation. The common duct measures 0.9 cm. GALLBLADDER: Gallstones are noted. There is mild gallbladder wall thickening. There is a 1.6 cm stone within the gallbladder neck that appears immobile. PANCREAS: The head of the pancreas is unremarkable. The tail of the pancreas is not well visualized secondary to overlying bowel gas. RIGHT KIDNEY: The right kidney is normal in shape, size, contour, and echogenicity. There is no hydronephrosis or nephrolithiasis. The right kidney measures 10.8 x 4.2 x 5.2 cm. AORTA AND IVC: The aorta and IVC are unremarkable. FLUID: There are no pleural effusions. There is no free fluid within the hepatorenal recess. OTHER FINDINGS: None. IMPRESSION: 1. CHOLELITHIASIS INCLUDING A 1.6 CM CALCULUS OF THE GALLBLADDER NECK THAT APPEARS IMMOBILE. 2. THERE IS DILATATION OF THE COMMON DUCT UP TO 0.9 CM. THERE IS NO APPRECIABLE INTRAHEPATIC BILIARY DILATATION.
[2017-08-19] MEDS ORDERED: Propofol* 10 MG/ML 20 ML BTL IV PUSH ONE (15:58)
[2017-08-19] MEDS ORDERED: Dexamethasone IV* 4 MG/ML 1 ML (4 MG) ONE (15:58)
[2017-08-19] MEDS ORDERED: Ondansetron ODT TAB* 4 MG ONE (15:58)
[2017-08-19] MEDS ORDERED: Famotidine IV* 10 MG/ML 2 ML (20 mg) ONE (15:58)
[2017-08-19] MEDS ORDERED: Cisatracurium* 2 MG/ML MDV 5 ML ONE (16:00)
--- NOTE | 2017-08-19 18:15 | RAD ---
CPT II Codes: G9500 Indication: Cholangiogram. 1.3 minutes of fluoroscopy time was used. 4 spot images demonstrates normal appearance of the common hepatic and common bile duct. IMPRESSION: Unremarkable ERCP.
[2017-08-19] MEDS ORDERED: Metoclopramide IV* 5 MG/ML 2 ML VIAL IV SLOW PU PRN (18:49)
[2017-08-19] MEDS ORDERED: Morphine VIAL* 4 MG/ML VIAL (1 ml vial) IV PRN (18:49)
[2017-08-19] MEDS: NS 0.9% 1000 ML* 1,000 ML IV SCH (19:34)
[2017-08-19] MEDS: metroNIDAZOLE IV 500 MG/100ML* 500 MG/100 ML BAG IVPB SCH (21:08)
[2017-08-20] MEDS ORDERED: Ciprofloxacin 400MG IVPREMIX(* 400 MG/200 ML BAG IVPB SCH (04:00)
[2017-08-20 05:12] LABS: Hematocrit 36 % (35-47); Mean Corpuscular HGB Conc 34 g/dl (31-36); Mean Corpuscular Hemoglobin 31 pg (27-31); Mean Corpuscular Volume 92 fL (80-97); Mean Platelet Volume 7.9 um3 (7.4-10.4); Platelet Count 259 10^3/ul (150-450); Red Blood Count 3.88 10^6/ul (4.0-5.4); Red Cell Distribution Width 15 % (10.5-15); White Blood Count 8.8 10^3/ul (3.5-10.8)
[2017-08-20 05:27] LABS: EGFR Non-African American 109.2 (>60)
[2017-08-20] MEDS: metroNIDAZOLE IV 500 MG/100ML* 500 MG/100 ML BAG IVPB SCH (05:37)
[2017-08-20] MEDS: NS 0.9% 1000 ML* 1,000 ML IV SCH (07:50)
[2017-08-20 07:58] VITALS: BP 114/64
--- NOTE | 2017-08-20 09:06 | PN ---
Progress Note - Progress Note Date of Service: 08/20/17 Note: Surgery Progress: S: Appears that she had sphincterotomy w/ balloon sweep w/ yesterday's ERCP (no duct stones; no stent). She feels about the same this a.m.: denies pain; feels anorexic, but no N/V. She would like to go home (she was given the impression from Dr. Mckinney that she would be having her surgery today) if no surgery planned. O: Vital Signs - 8 hr 08/20/17 08/20/17 08/20/17 03:34 07:26 07:57 Temperature 97.7 F 98.4 F Pulse Rate 66 70 Respiratory 16 16 16 Rate Blood Pressure 132/73 114/64 (mmHg) O2 Sat by Pulse 98 96 Oximetry 08/20/17 08:00 Temperature Pulse Rate Respiratory 16 Rate Blood Pressure (mmHg) O2 Sat by Pulse Oximetry Gen: Appears comfortable; NAD Heart: reg Lungs: clear Abd: obese; +BS; soft; min epigastric tenderness; remainder soft, nontender Labs: Laboratory Tests 08/20/17 08/20/17 04:46 04:46 WBC 8.8 Glucose 138 H Total Bilirubin 3.30 H D AST 155 H ALT 230 H Alkaline Phosphatase 251 H Lipase 450 H A: symptomatic cholelithiasis; s/p ERCP w/ (clinically) mild post-ERCP pancreatitis P: discussed w/ Dr. Lauren; will give clear liq diet; if raudel, home today; cont po Cipro/Flagyl; repeat lipase, LFTs tomorrow; office f/u w/ Dr. Lauren next wk.
--- NOTE | 2017-08-20 16:51 | PRO ---
DATE: 08/19/17 - ROOM #[id number] REFERRING PHYSICIANS: Jimenez Hanley, Jalen Lauren* PROCEDURE: ERCP with common duct cannulation, sphincterotomy 12 to 13 mm, and balloon sweeps to common duct, yielding mucus and gravel particles though no stones are seen. INDICATION: This 37-year-old woman has had abdominal pain for about 2 weeks. She has had gradually rising bilirubin and alkaline phosphatase. Her transaminases have remained pretty consistent in the high 200s to 300s. She was at home for 6 days after an admission here last week. She was taking Cipro p.o. She said pain had diminished tremendously, but then increased last night. Labs this morning show a normal CBC. INR is 0.96, bilirubin up to 8, and alkaline phosphatase somewhat higher. Right upper quadrant gallbladder ultrasound did show a 9-mm proximal common bile duct and 4 to 5 mm distal. Informed consent had been obtained a week ago in the hospital and then Dr. Lauren had discussed her situation in the office 2 days ago and further today. It was discussed (before any parenteral pain medications given) that her worsening lab tests created an indication to know more about her bile duct and possible obstruction and that an ERCP with removal of any stones encountered would be done and there was a definite possibility of placing a stent. There was also a possibility of technical failure, bleeding pancreatitis, or more severe sequelae. ENDOSCOPIST: Dr. Marie. ANESTHESIA: Dr Keith. FINDINGS: She is a substantially overweight woman, in no overt distress, mildly jaundiced. She was positioned on pillows and with pads and warming blanket applied. ENDOSCOPIC RETROGRADE CHOLANGIOPANCREATOGRAPHY: Esophagus - 30% views are normal. Stomach - 50% views are normal, predominantly of the greater curvature and antrum. The pylorus appears normal. Duodenum - normal contours of the bulb and second and third portion. The papilla was very flat with a slit like unobtrusive opening. Bile was seen discharging. There was no bleeding. The bile was thin, watery, without signs of purulence. The sphincterotome inclined about 30 degrees, briefly probed the papillary surface at about 11 o'clock orientation. Gentle lift of the elevator and insertion of the guidewire in several sequential maneuvers did yield an orientation consistent with the bile duct and an injection confirmed that. A wire was cannulated deeply. There was no sign of any cystic duct cannulation. Full common duct injection did not show any stone. An exchange was made for a balloon extraction catheter, 9 to 12. This was pulled through and supplementary dye injection done. No stone was seen. The balloon came through snugly at 12, bringing with it a little bit of mucus and grit, but no defined stone that was identified. Bile was discharging copiously spontaneously. Another dye injection and 2 more sweeps were done. It was clear that there was no obstructing lesion in the common duct (no sign of Mirrizzi's syndrome) and the procedure was terminated. No stent appeared necessary. IMPRESSION: 1. Common bile duct dilation - unclear if the patient had a mild papillary stenosis or more likely that a stone that passed within the last 24 hours. 2. Gallbladder stones - to be addressed by Dr. Lauren. 3. Status post sphincterotomy - order is written for no heparin and ice chips only p.o. She had been given an Indocin suppository 30 minutes before the cannulation was begun. [id number]/[facility] #: [id number] CORINNE
--- NOTE | 2017-08-21 03:29 | DS ---
CC: Dr. Jimenez Hanley * DISCHARGE SUMMARY: DATE OF ADMISSION: 08/19/17 DATE OF DISCHARGE: 08/20/17 ATTENDING SURGEON: Dr. Jalen Lauren.* (DICTATED BY ([facility]) HOSPITAL COURSE: The patient was recent admitted for symptomatic cholelithiasis with acute cholecystitis and apparent common bile duct obstruction. I believe during her last admission, an MRCP was actually normal. However, she continued to have significant elevated liver function tests including total bilirubin to 8. She was admitted yesterday and underwent ERCP with Dr. Marie. From his notes, it appears as though he did a balloon sweep of the common bile duct (no stones noted) and a sphincterotomy. No stent was placed. This morning, the patient feels about the same that she has, i.e., some mild nausea and anorexia, but no active vomiting and she denies any abdominal pain. PHYSICAL EXAMINATION: Vital Signs: She is afebrile and her vital signs are stable. General: She appears comfortable. Heart: Regular rate and rhythm. Lungs: Clear to auscultation. Abdomen: Positive bowel sounds. Obese. Mid epigastric tenderness. The remainder of the abdomen is soft and nontender. LABORATORY DATA: Notable is laboratory from this morning which includes total bilirubin down to 3.3. Other LFTs are still elevated, but trending downward. Her lipase is 450 (normal less than or equal to 82). IMPRESSION: Symptomatic cholelithiasis, now status post ERCP with balloon dilation and sphincterotomy with mild chemical post ERCP pancreatitis. PLAN: The case was discussed with Dr. Lauren who is comfortable with starting her on clear liquids and if well tolerated discharged home with repeat lab work tomorrow and followup in the office next week. She will be continued on her current oral Cipro and Flagyl likely until surgery date is planned. AL [facility] [id number]/[facility] #: [id number] [facility]
== END 2017-08-20 10:05 | disposition home or self-care (01) ==
LOC: OR 12:49 → SSU 18:25
PROVIDERS: ADMIT Surgery; ATTEND Surgery
PROC: 0F798ZZ Dilation of Common Bile Duct, Via Natural or Artificial Opening Endoscopic (ICD-10-PCS; 2017-08-19)
PROC: 0FC98ZZ Extirpation of Matter from Common Bile Duct, Via Natural or Artificial Opening Endoscopic (ICD-10-PCS; principal; 2017-08-19 13:30)
DX: K80.21 Calculus of gallbladder without cholecystitis with obstruction (principal); E66.9 Obesity, unspecified
CPT/HCPCS: 36415; 74300; 76001; 76705; 80053; 83690; 85027; 87086; 87106; A9270-GY; C1769; G0378; J0744; J1100; J2250; J2704; J3010; J3490

== ENCOUNTER 2017-09-23 07:35 | Day surgery (SDC) | payer BC ==
[~2017-09-23 07:35] MED LIST changes: +Famotidine IV* 10 MG/ML 2 ML (20 mg) IV ONE; +Gentamicin ADULT (*) 350 MG in NS 0.9% 250 ML* 250 ML IVPB ONE
[2017-09-23] MEDS ORDERED: Famotidine IV* 10 MG/ML 2 ML (20 mg) ONE (07:38)
[2017-09-23] MEDS ORDERED: Buffered Lidocaine 0.9% SYRIN* 5 ML/SYR SYRINGE ONE (07:39)
[2017-09-23] MEDS ORDERED: Clindamycin 900 MG IVPREMIX(* 900 MG/50 ML SDV IV ONE (07:39)
[2017-09-23] MEDS ORDERED: Midazolam* 1 MG/ML 5 ML VIAL (5 MG) ONE (08:12)
[2017-09-23] MEDS ORDERED: fentaNYL* 50 MCG/ML 2 ML VIAL (100 MCG VIAL) ONE ×2 (08:12→09:38)
[2017-09-23] MEDS ORDERED: Bupivacaine 0.25% W/EPI* 10 ML SDV ONE (09:02)
[2017-09-23] MEDS ORDERED: Propofol* 10 MG/ML 20 ML BTL IV PUSH ONE (09:42)
[2017-09-23] MEDS ORDERED: Lidocaine 2% PF * 5 ML VIAL ONE (09:44)
[2017-09-23] MEDS ORDERED: Dexamethasone IV* 4 MG/ML 1 ML (4 MG) ONE (09:45)
[2017-09-23] MEDS ORDERED: Ketorolac INJ* 30 MG/ML 1 ML VIAL ONE (09:45)
[2017-09-23] MEDS ORDERED: Ondansetron INJ* 2 MG/ML VIAL ONE (09:45)
[2017-09-23] MEDS ORDERED: Succinylcholine* 20 MG/ML 10 ML VIAL ONE (09:45)
[2017-09-23] MEDS ORDERED: DiMENhydriNATE IV* 50 MG/ML VIAL ONE (09:45)
[2017-09-23] MEDS ORDERED: HYDROmorphone INJ* 0.5 MG/0.5 ML SYRINGE ONE ×2 (10:18→11:07)
[2017-09-23] MEDS ORDERED: DiMENhydriNATE IV* 50 MG/ML VIAL IV PUSH PRN (10:52)
[2017-09-23] MEDS ORDERED: HYDROmorphone INJ* 0.5 MG/0.5 ML SYRINGE IV PRN (10:52)
[2017-09-23] MEDS ORDERED: Naloxone* 0.4 MG/ML 1 ML VIAL IV PRN (10:52)
[2017-09-23] MEDS ORDERED: oxyCODONE/Acetamin 5/325 MG* TAB PO PRN (10:52)
--- NOTE | 2017-09-23 11:49 | BRIEFOPN ---
Brief Operative Note - Surgery Procedures: Procedures Pre-OP Diagnoses: acute cholecystitis Post-op Diagnosis: same Procedure: Laparoscopic partial cholecystectomy Surgeon: Xin Asst: HAWA Salcedo Anethesia: NIKKO Quijano EBL: 100cc IVF: 2L crystalloid Specimen: gallbladder Drains: none
[2017-09-23 14:19] VITALS: BP 122/90
[2017-09-23] MEDS ORDERED: oxyCODONE/Acetamin 5/325 MG* TAB ONE (14:21)
--- NOTE | 2017-09-23 23:16 | OP ---
CC: Jimenez Hanley MD * DATE OF OPERATION: 09/23/17 - [facility] DATE OF : 76 SURGEON: Jalen Lauren MD CREDIT COLLECTIONS SPECIALIST: SEKOU Prince ANESTHESIOLOGIST: Dr. Quijano. ANESTHESIA: General anesthesia. PRE-OP DIAGNOSIS: Acute cholecystitis. POST-OP DIAGNOSIS: Acute cholecystitis. OPERATIVE PROCEDURE: Laparoscopic partial cholecystectomy. ESTIMATED BLOOD LOSS: 100 cc. FLUIDS: 2 L of crystalloid fluid given. SPECIMEN: Gallbladder. DRAINS: None. COUNTS: Lap, pad count, instrument count correct at the end of the procedure. INDICATIONS: Ms. Villa is a 37-year-old female who was admitted at the end of July with a diagnosis of acute cholecystitis with a concern for possible choledocholithiasis versus Mirizzi syndrome. The patient was followed with a plan of laparoscopic cholecystectomy; however, LFTs continued to rise and the patient who had undergone an MRCP ultimately underwent an ERCP as an outpatient. I had followed the patient along the way. We started her on antibiotics and ultimately, she did improve from her bout of acute cholecystitis. She underwent an ERCP as her bilirubin and alk phos continued to elevate despite the resolution of symptoms and the patient underwent a sphincterotomy with removal of sludge but no clear common bile duct stones. Consideration was for waiting 6 weeks before surgical intervention from the acute onset. The patient had completed a course of antibiotics. She had done well and was followed closely and agreed to a laparoscopic cholecystectomy. DESCRIPTION OF PROCEDURE: On the day of surgery, the patient was identified in the preoperative area, taken to the OR, placed in the operating room table in a supine position. Preoperative antibiotics were given. Sequential devices were placed on bilateral lower extremities. General anesthesia was induced. The patient's abdomen was prepped and draped in the standard surgical fashion and a time-out was performed. Folds of the umbilicus were elevated anteriorly and a Veress needle inserted into the abdominal cavity, which was then allowed to insufflate to a pressure of 15 mmHg. The patient tolerated the insufflation well. A periumbilical incision was made and a 5 mm trocar was inserted. Laparoscope was inserted through this and there was no evidence of injury from the trocar insertion or from the Veress needle. Additional trocars were then placed in the following positions; a 12 mm in the subxiphoid area and two 5-mm along the right costal margin. Table was repositioned. The dome of the gallbladder could not be identified due to adhesions to the omentum. These were taken down with both blunt and sharp dissection until I could see the dome of the gallbladder which was grasped and elevated anteriorly. Mostly blunt dissection with a suction material movers was used to see the wall of the gallbladder as we took down omentum right down through the body and into what we thought was the infundibular region. At this point, dissection was carried out to expose the infundibular area of the gallbladder and peeled this off what appeared to be the common bile duct. The duodenum was also sharply lysed off the inflammatory process and was not injured throughout the process. Now, we were able to elevate the gallbladder over the liver and give better exposure. We lifted the infundibular region of the gallbladder up anteriorly and up towards the right lower quadrant. A thick peel was taken down painstakingly with both blunt dissection and electrocautery along with sharp dissection. We did enter into the gallbladder. Clear bile consistent with hydrops was identified. We utilized this opening of the gallbladder to view inside and see that we were extending our dissection down towards what appeared to be the cystic duct. Cystic duct was isolated, but prior to clipping this, I tried to get to the posterior aspect of the gallbladder proper, but we could not and at this point, made a decision to cut through the gallbladder until we could see that this was the only structure. We ended up leaving posterior wall on, but I did have a good cystic duct that was isolated and again the only structure going into the gallbladder. It should be noted that we identified the cystic duct only by bleeding from the site. This was controlled with a small clip over the gallbladder and prior to taking the cystic duct, we did make attempt to isolate the artery with a right angle and the artery was ultimately avulsed and did not show bleeding into the area, but I felt this was most likely the main blood vessel. One branch off this to the cystic duct had been singly clipped and we cut through it to ensure that it was just a small structure not consistent with any biliary structure. Once the avulsed gallbladder was lifted without any structures holding it back, we could see that there was only one structure of the cystic duct and this was doubly clipped and ligated. We then removed the anterior face of the gallbladder entirely, and I put this in a specimen bag and removed it. There was one large stone that had been broken up with stone forceps and all portions were removed. Next, we turned our attention to the cystic duct stump; this appeared intact. Again, we felt that we identified the common bile duct but we are not entirely sure given the patient's body habitus and the inflammatory process. The inflamed mucosa was cauterized with hook cautery throughout the entirety of this. We did irrigate copiously with approximately 3 L of warm saline. This was suctioned off. Hemostasis was achieved. This was not an issue. We did cauterize as best as we can the posterior wall of the gallbladder and allowed the abdomen to collapse. Trocars were removed under direct vision and all 4 skin incisions were reapproximated with 4-0 Monocryl subcuticular sutures followed by Steri-Strips and sterile dressing. The patient was extubated and transferred to the PACU in stable condition. We took an hour and 50 minutes to do the procedure which is 100% more than the typical time required for this procedure. [id number]/[facility] #: [id number] CORINNE
== END 2017-09-23 15:07 | disposition home or self-care (01) ==
LOC: OR 07:35
PROVIDERS: ATTEND Surgery
DX: K80.12 Calculus of gallbladder with acute and chronic cholecystitis without obstruction (principal); Z72.0 Tobacco use
CPT/HCPCS: 81025; 88304; A9270-GY; J0330; J1100; J1170; J1240; J1580; J1885; J2250; J2405; J2704; J3010